=== PATIENT | male | born 1950 | race Caucasian/White ===

== ENCOUNTER → 2016-05-27 | Outpatient (CLI) | payer OTHER ==
[~2016-05-27] VITALS: Ht 177.8 cm; Wt 108.9 kg
[~2016-05-27] MED LIST: CATHETER FLUSH 10 ML SYR IV PRN; DOXY100C42 PO; ENXP40I.4 SC; EZET10TA5 PO; FENO134C PO; FLC1T PO; IBP800T PO; OMG1KC PO; OXYC1TAB87 PO
[2016-05-27 09:22] VITALS: BP 139/89
[2016-05-27 09:25] VITALS: BP 139/72
[2016-05-27 09:29] VITALS: BP 139/87
[2016-05-27 09:32] VITALS: BP 131/89
--- NOTE | 2016-05-28 08:55 | STRESS TEST ---
PROCEDURE PHYSICIAN: ELMER PERDUE DATE OF PROCEDURE: 05/27/2016 EXERCISE MYOVIEW STRESS TEST REPORT: REFERRING PHYSICIAN: Dr. Cruz. INDICATION FOR THE PROCEDURE: 1. Hypertension. 2. Hyperlipidemia. BASELINE HEART RATE: 56 BASELINE BLOOD PRESSURE: 110/73 BASELINE EKG: Sinus rhythm with no ischemic changes. IN SUMMARY: The patient was injected with 10.34 mCi of technetium 99 Myoview and the resting images were obtained. Then the patient started exercising with a baseline heart rate, blood pressure and EKG mentioned above. At minute 9, the patient was injected with 30 mCi of technetium 99 Myoview. He was able to exercise for total of 10 minutes on standard Artem protocol. With peak exercise level, EKG was showing minimal nondiagnostic changes. Blood pressure was 139/89. During recovery the patient had more EKG changes with upsloping ST depression in 2, 3, aVF, V4 and V5, which resolved later in recovery. The resting and stress images were reviewed and compared in the short axis, horizontal long axis, and vertical long axis views. Review of the images showed diaphragmatic attenuation with good radiotracer uptake. There is no significant ischemia or infarction on SPECT images. SSS is 4, SDS 4, TID value 0.93. On the gated images, the left ventricle appeared to be normal size with normal contractility. Calculated ejection fraction 61%. IN CONCLUSION: 1. Good exercise tolerance a total of 10 minutes on standard Artem protocol. Total of 12.8 METs, achieving 90% of maximum expected heart rate. 2. Appropriate heart rate and blood pressure response to exercise. Returned to baseline during recovery. 3. Nondiagnostic EKG changes with exercise. Returned to baseline during recovery. 4. No ischemia or infarction on SPECT images. 5. Normal left ventricular size with normal contractility. Calculated ejection fraction 61%. Job ID: [id number] Dictated Date: 05/28/2016 08:07:53 Manager Wealth Management Date: 05/28/2016 08:52:07 / monica
== END ==
LOC: CARD 07:25
PROVIDERS: ATTEND Physician Assistant
DX: I10 Essential (primary) hypertension (principal); E78.2 Mixed hyperlipidemia; G47.33 Obstructive sleep apnea (adult) (pediatric); E66.8 Other obesity
CPT/HCPCS: 78452; 93017

== ENCOUNTER → 2017-10-16 | Outpatient (CLI) | payer BC, OTHER ==
[~2017-10-16] MED LIST changes: +BARIUM SUSPENSION 2.1% (VANILLA SILQ) 450 ML PO ONE; +IOHEXOL 350 MG/ML 100 ML (OMNIPAQUE 350) VIAL IV ONE; +NS 250 ML (IVPB) BAG IV ONE
[2017-10-16 11:39] LABS: CREATININE SERUM 1.23 MG/DL (0.60-1.30)
--- NOTE | 2017-10-16 12:56 | Diagnostic Imaging Report ---
PROCEDURE: CT abdomen and pelvis with contrast. TECHNIQUE: Multiple contiguous axial images were obtained through the abdomen and pelvis after administration of intravenous contrast. INDICATION: Prostate cancer. COMPARISON: There is no previous study available at this time for comparison. FINDINGS: No focal hepatic or splenic lesion is identified. There is low density throughout the liver suggesting steatosis. No gallbladder or pancreatic abnormality is seen. Adrenal glands are unremarkable. There is no evidence of renal lesion. There is mild mural prominence in the upper stomach, which may be due to incomplete distention or possible peptic ulcer disease. There is no free fluid in the abdomen or pelvis. No pathologic adenopathy is identified. Partially opacified urinary bladder is unremarkable. 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 There is localized L2-3 degenerative disc disease with [id number]-[id number] lower lumbar degenerative facet arthropathy. IMPRESSION: Mild hepatic steatosis without CT evidence of acute abnormality in the abdomen or pelvis. There is no evidence of pathologic adenopathy or metastatic disease. Dictated by: Dictated on workstation # [id number]
--- NOTE | 2017-10-16 17:05 | Diagnostic Imaging Report ---
EXAMINATION: Whole body bone scan. INDICATION: History of prostate CA. There are no prior studies available for comparison. TECHNIQUE: This study was performed following administration of 27.3 mCi of 99m-technetium MDP. Anterior and posterior whole-body images were obtained. Spot films of the calvarium and the ribs were also obtained in lateral projection. FINDINGS: There is generalized distribution of the radiotracer throughout the osseous structures. There is no focal area of increased or decreased activity to suggest metastatic disease. There is increased activity about both acromioclavicular joints and both knee joints. This finding is most likely due to degenerative disease. There is a total knee prosthesis in place on the left as well. Both kidneys do show excretion of the radiotracer. IMPRESSION: 1. There is no evidence for an acute bony abnormality and there is no sign of metastatic disease. 2. There is degenerative disease involving the acromioclavicular and knee joints. There is also a total knee prosthesis in place on the left. Dictated by: Dictated on workstation # [id number]
== END ==
LOC: CARD 11:03
PROVIDERS: ATTEND Urology
DX: C61 Malignant neoplasm of prostate (principal); K76.0 Fatty (change of) liver, not elsewhere classified; Z96.652 Presence of left artificial knee joint; M17.0 Bilateral primary osteoarthritis of knee; M19.011 Primary osteoarthritis, right shoulder; M19.012 Primary osteoarthritis, left shoulder
CPT/HCPCS: 36415; 74177; 78306; 82565; 84520

== ENCOUNTER → 2018-03-19 | Outpatient (CLI) | payer BC ==
[~2018-03-19] MED LIST changes: -BARIUM SUSPENSION 2.1% (VANILLA SILQ) 450 ML PO ONE; -CATHETER FLUSH 10 ML SYR IV PRN; -IOHEXOL 350 MG/ML 100 ML (OMNIPAQUE 350) VIAL IV ONE; -NS 250 ML (IVPB) BAG IV ONE
--- NOTE | 2018-03-19 14:39 | Diagnostic Imaging Report ---
DEXA scan. Indication: Vitamin D deficiency. The bone mineral density of the hips and spine was measured. There are no prior studies available for comparison. The T score for the spine is 2.1. The T score for left hip is 1.1 and for the right hip 1.7. All these values are well within normal limits. Impression: The bone mineral density of the hips and spine is within normal limits. Dictated by: Dictated on workstation # [id number]
== END ==
LOC: RAD 09:56
PROVIDERS: ATTEND Family Medicine
DX: E55.9 Vitamin D deficiency, unspecified (principal)
CPT/HCPCS: 77080

== ENCOUNTER → 2018-03-23 | Outpatient (CLI) | payer BC ==
[~2018-03-23] MED LIST changes: +GADOBUTROL 7.5 MMOL/7.5 ML (GADAVIST) VIAL IV ONE; +IOHEXOL 240 MGI/ML 20 ML (OMNIPAQUE) VIAL IV ONE
--- NOTE | 2018-03-23 13:44 | Diagnostic Imaging Report ---
INDICATION: Left shoulder pain. FINDINGS: Patient was brought to the procedure room, placed on the table in the supine position. The skin of the left shoulder was prepped and draped in the usual sterile fashion. Small amount of 1% lidocaine was utilized for local anesthesia. 22-gauge needle was advanced into the left shoulder at the rotator interval. 15 mL solution of iodinated contrast, normal saline, and gadolinium was injected under fluoroscopic observation. Needle was withdrawn and hemostasis was obtained. The patient tolerated the procedure well and was sent to MRI in satisfactory condition. A total of 14 seconds of fluoroscopy was utilized. IMPRESSION: Successful left shoulder injection of gadolinium contrast solution, using fluoroscopy. Dictated by: Dictated on workstation # [id number]
--- NOTE | 2018-03-23 16:02 | Diagnostic Imaging Report ---
EXAMINATION: Magnetic resonance imaging of the left shoulder with intra-articular contrast. DATE: March 23, 2018. COMPARISON: Left shoulder arthrogram March 23, 2018. HISTORY: 67-year-old male, left shoulder pain. TECHNIQUE: Magnetic Resonance Imaging sequences were performed of the shoulder following the intra-articular administration of contrast. FINDINGS: ROTATOR CUFF, LIGAMENTS, TENDONS, AND MUSCLES: There is a focal round area of low signal adjacent to the posterior aspect of the infraspinatus tendon measuring 5 mm in size, likely reflecting calcific tendinitis/bursitis. There is no particularly prominent adjacent edema. There is no tear of the infraspinatus or teres minor tendons. There is prominent tendinopathy of supraspinatus. There is subscapularis tendinopathy. There are limitations of the axial sequence with associated limitations for evaluation of the subscapularis tendon. There is no convincing full-thickness tear of the subscapularis tendon. There is normal rotator cuff muscle bulk and signal. LONG HEAD OF BICEPS: There is tendinopathy of the long head of biceps. There is no tear of the long head of biceps tendon. The long head of biceps tendon is normally positioned within the bicipital groove. GLENOHUMERAL JOINT: The humeral head is well positioned relative to the glenoid. There is generalized blunting of the labrum. There is no identified paralabral cyst. There is near full-thickness glenohumeral cartilage loss. There is no identified intra-articular body or prominent synovitis. ACROMIOCLAVICULAR JOINT: The acromioclavicular joint is normally aligned. The coracoclavicular and coracoacromial ligaments are intact. There are advanced acromioclavicular degenerative changes with a bulbous lateral clavicle projecting approximately 3 mm below the joint margin. There is a small acromioclavicular joint effusion. BONE: There is no os acromiale. There is degenerative related marrow edema adjacent to the acromioclavicular joint. There is no acute fracture, bone contusion, or evidence of osteonecrosis. There is a subcortical cyst underlying the attachment site of infraspinatus within the superior humeral head measuring 9 x 6 mm in size. There is a small 3 mm subcortical cyst within the superior humeral head underlying the supraspinatus tendon insertion. BURSAE AND SOFT TISSUES: The bursae and soft tissue surrounding the shoulder are unremarkable. IMPRESSION: 1. Negative for full-thickness rotator cuff tendon tear. Severe supraspinatus and subscapularis tendinopathy. 2. Advanced acromioclavicular degenerative changes with bulbous lateral clavicle projecting 3 mm below the joint margin. No os acromiale. 3. Moderate to severe glenohumeral arthritis. No intra-articular body or prominent synovitis. 4. No acute fracture, bone contusion, or evidence of osteonecrosis. 5. Long head of biceps tendinopathy. Dictated by: Dictated on workstation # [id number]
== END ==
LOC: RAD 11:54
PROVIDERS: ATTEND Orthopaedic Surgery
DX: S43.432A Superior glenoid labrum lesion of left shoulder, initial encounter (principal); M75.22 Bicipital tendinitis, left shoulder; M19.012 Primary osteoarthritis, left shoulder
CPT/HCPCS: 23350; 73040; 73222

== ENCOUNTER 2018-04-29 14:00 | Outpatient (CLI) | payer BC ==
[~2018-04-29] VITALS: Ht 177.8 cm; Wt 109.3 kg
[~2018-04-29 14:00] MED LIST changes: -GADOBUTROL 7.5 MMOL/7.5 ML (GADAVIST) VIAL IV ONE; -IOHEXOL 240 MGI/ML 20 ML (OMNIPAQUE) VIAL IV ONE
[2018-04-29] MEDS ORDERED: LOSA25TA6 PO (14:10)
[2018-04-29] MEDS ORDERED: FOLI1TAB24 PO (14:10)
[2018-04-29] MEDS ORDERED: METO-370 PO (14:10)
[2018-04-29] MEDS ORDERED: EZET10TA27 PO (14:10)
[2018-04-29] MEDS ORDERED: FENO134C PO (14:10)
== END 2018-04-29 14:13 | disposition home or self-care (01) ==
LOC: PREOP 14:00
PROVIDERS: ATTEND Internal Medicine
DX: Z01.818 Encounter for other preprocedural examination (principal)

== ENCOUNTER 2018-05-01 07:51 | Day surgery (SDC) | payer BC ==
--- NOTE | 2018-04-16 18:06 | HISTORY AND PHYSICAL ---
DATE OF SERVICE: COLONOSCOPY HISTORY AND PHYSICAL HISTORY OF PRESENT ILLNESS: The patient is a 67-year-old white male referred by Dr. Cruz for screening colonoscopy. He seemed to be of higher than average risk as there is family history for colon cancer. The main index case was his father who was diagnosed with colon cancer in his late 50s or early 60s. He has also had one grandmother who was diagnosed later in life with colon cancer. His last colonoscopy was a little over 4 years ago, at which time, he had no evidence for neoplasia. INTERVAL HISTORY: Pertinent for prostate cancer. He underwent robotic prostatectomy earlier this year, I believe in November of this year. The surgery went well. He has had no reported complications and he is going to be going back to where he had this done robotically for repeat postoperative PSA next week. He reports that he feels well. PAST MEDICAL HISTORY: Significant for hyperlipidemia and hypertension with no known history of vascular disease. SOCIAL HISTORY: He is employed, , with children. No past smoking history and reported occasional social alcohol intake. PAST SURGICAL HISTORY: Other than his robotic prostatectomy is also significant for left total knee replacement in 03/2013 that was uneventful. MEDICATIONS ON ADMISSION: Include metoprolol succinate 50 mg daily, losartan 25 mg daily, fenofibrate 134 mg daily, folic acid 1 mg daily and Zetia 10 mg daily. PHYSICAL EXAMINATION: GENERAL: Reveals a well-appearing white male in no acute distress. VITAL SIGNS: Weight is 241 pounds, blood pressure 114/82. HEENT: Unremarkable as Mallampati class 2 oropharyngeal configuration. Posterior pharynx reveals no erythema or exudate. NECK: Revealed no JVD, adenopathy or bruits. CHEST: Clear to auscultation. CARDIOVASCULAR: Reveals a regular rate and rhythm without murmur, S3 or S4. ABDOMEN: Soft, supple without mass, organomegaly or tenderness. Well-healed trocar sites are noted that are nontender. No evidence for abdominal aortic aneurysm is noted. Bowel sounds are positive. No bruits are noted. EXTREMITIES: Reveal no cyanosis, clubbing or edema. ASSESSMENT AND PLAN: 1. The patient was set up for screening colonoscopy deemed to be higher than average risk due to father diagnosed with colon cancer in his late 50s or early 60s. One grandmother diagnosed with colon cancer as well. Prep instructions and Suprep kit were given and questions were answered. Electronic medical record was reviewed. Forty-five minutes care time was spent by myself and another 15 minutes of staff time setting up the procedure and going over prep instructions. I thank you for the referral of this pleasant gentleman. Job ID: [id number] DocumentID: [id number] Dictated Date: 04/16/2018 17:31:22 Credentialer Date: 04/16/2018 18:06:24 Dictated By: MIRIAN FRANKEL MD
[~2018-05-01] VITALS: Ht 177.8 cm; Wt 109.3 kg
[~2018-05-01 07:51] MED LIST changes: +EZET10TA27 PO; +FOLI1TAB24 PO; +LOSA25TA6 PO; +METO-370 PO
[2018-05-01 08:00] VITALS: BP 110/84
[2018-05-01] MEDS ORDERED: D5 LR IV SOLUTION 1,000 ML IV STA (08:03)
[2018-05-01] MEDS ORDERED: D5 LR IV SOLUTION 1,000 ML IV ONE (08:06)
[2018-05-01] MEDS ORDERED: fentaNYL INJECTION 100 MCG/2 ML AMP IVP ONE (08:15)
[2018-05-01] MEDS ORDERED: MIDAZOLAM 2 MG/2 ML (VERSED) VIAL IVP ONE (08:15)
[2018-05-01] MEDS ORDERED: LIDOCAINE JELLY 2% 6 ML SYRINGE MM PRN (08:15)
[2018-05-01] MEDS ORDERED: fentaNYL INJECTION 100 MCG/2 ML AMP ONE (09:00)
[2018-05-01] MEDS ORDERED: MIDAZOLAM 2 MG/2 ML (VERSED) VIAL ONE ×2 (09:00)
[2018-05-01] MEDS ORDERED: LIDOCAINE JELLY 2% 6 ML SYRINGE ONE (09:01)
--- NOTE | 2018-05-01 09:13 | Pre-Op Note & Conscious Sedat ---
Pre-Operative Progress Note H&P Reviewed The H&P was reviewed, patient examined and no changes noted. Date H&P Reviewed: May 01, 2018 Time H&P Reviewed: 09:05 Conscious Sedation Pre-Proced ASA Score 2 For ASA 3 and 4: Consider anesthesia and medical clearance. Also, for patients with a history of failed moderate sedation consider anesthesia. Airway Lungs Heart ASA score ASA 1: a normal healthy patient ASA 2: a patient with a mild systemic disease (mid diabetes, controlled hypertension, obesity ASA 3: a patient with a severe systemic disease that limits activity (angina , COPD, prior Myocardial infarction) ASA 4: a patient with an incapacitating disease that is a constant threat to life (CHF, renal failure) ASA 5: a moribund patient not expected to survive 24 hrs. (ruptured aneurysm) ASA 6: a declared brain patient whose organs are being harvested. For emergent operations, add the letter E after the classification Mallampati Classification Grade 2 Sedation Plan Analgesia, Amnesia, Plan communicated to team members, Discussed options with patient/fam, Discussed risks with patient/fam The patient is an appropriate candidate to undergo the planned procedure, sedation, and anesthesia. The patient immediately re-assessed prior to indication. MIRIAN FRANKEL MD May 01, 2018 09:13
[2018-05-01 09:45] VITALS: BP 123/81
[2018-05-01 10:15] VITALS: BP 119/78
[2018-05-01 10:45] VITALS: BP 119/78
--- NOTE | 2018-05-01 23:10 | OPERATIVE REPORT ---
DATE OF SERVICE: COLONOSCOPY SUMMARY INDICATION FOR THE PROCEDURE: Screening colonoscopy. The patient was placed in the left lateral decubitus position and digital rectal evaluation was performed. Anal sphincter tone was normal and the perianal reflexes intact. The prostate is elastic mildly enlarged, anodular and nontender to digital inspection. No abnormalities on additional inspection of the anal canal or distal rectal vault. The colonoscope was then inserted into the rectum under direct visualization advanced to the cecum. The cecum was identified by the extent of the ileocecal valve and cecal strap. Photographic documentation was obtained. A careful inspection was made as the colonoscope was withdrawn. The patient tolerated the procedure well. FINDINGS: There was no evidence for internal or external hemorrhoids. Present in the distal rectum was a diminutive hyperplastic appearing polyp was photographed and biopsied and ablated with no subsequent blood loss via hot forceps. The remainder of the rectum, sigmoid colon, descending colon, splenic flexure, transverse colon, hepatic flexure, ascending colon and cecum were unremarkable. ASSESSMENT: One diminutive polyp was removed via hot forceps from the distal rectum with hyperplastic appearing features. Digital rectal evaluation was compatible with mild BPH without evidence for prostate nodularity or tenderness. The patient does have family history of second degree relative with colon cancer, his grandmother and past colon polyps, we will advocate repeat surveillance colonoscopy in 5 years. I thank you for the referral of this pleasant gentleman. Job ID: [id number] DocumentID: [id number] Dictated Date: 05/01/2018 12:17:01 Application Internship Date: 05/01/2018 23:10:05 Dictated By: MIRIAN FRANKEL MD
== END 2018-05-01 10:45 | disposition home or self-care (01) ==
LOC: ENDO 07:51
PROVIDERS: ATTEND Internal Medicine
DX: Z12.11 Encounter for screening for malignant neoplasm of colon (principal); K62.1 Rectal polyp; I10 Essential (primary) hypertension; E78.5 Hyperlipidemia, unspecified; C61 Malignant neoplasm of prostate; Z80.0 Family history of malignant neoplasm of digestive organs; Z83.71 Family history of colonic polyps; Z79.899 Other long term (current) drug therapy
CPT/HCPCS: 88305

== ENCOUNTER → 2019-02-22 | Outpatient (CLI) | payer MEDICARE, OTHER ==
[~2019-02-22] MED LIST changes: -EZET10TA27 PO; +EZET10TA49 PO; +LOSA25TA41 PO; -LOSA25TA6 PO
== END ==
LOC: CARD 10:52
PROVIDERS: ATTEND Physician Assistant
DX: I08.1 Rheumatic disorders of both mitral and tricuspid valves (principal); I10 Essential (primary) hypertension; E78.5 Hyperlipidemia, unspecified; G47.33 Obstructive sleep apnea (adult) (pediatric)
CPT/HCPCS: 93306

== ENCOUNTER → 2020-02-08 | Outpatient (RCR) | payer MEDICARE, OTHER ==
[2019-12-01 13:24] LABS: BUN/CREATININE RATIO 18; CREATININE SERUM 1.16 MG/DL (0.60-1.30); GFR ESTIMATED > 60
[~2020-02-08] MED LIST changes: -METO-370 PO; +METO50TA7 PO
== END | disposition home or self-care (01) ==
LOC: ONC 11-10 08:04
PROVIDERS: ATTEND Radiology Radiation Oncology
DX: Z51.0 Encounter for antineoplastic radiation therapy (principal); C61 Malignant neoplasm of prostate; I11.9 Hypertensive heart disease without heart failure; E78.5 Hyperlipidemia, unspecified; G47.33 Obstructive sleep apnea (adult) (pediatric); I65.29 Occlusion and stenosis of unspecified carotid artery; Z96.659 Presence of unspecified artificial knee joint; Z82.49 Family history of ischemic heart disease and other diseases of the circulatory system
CPT/HCPCS: 77300; 77301; 77334; 77336; 77338; 77385; 82565; 84520; 99204

== ENCOUNTER 2020-04-20 13:50 | Outpatient (RCR) | payer MEDICARE, OTHER | END 2020-05-09 | disposition home or self-care (01) | LOC: ONC 13:50 | PROVIDERS: ATTEND Radiology Radiation Oncology | DX: Z51.0 Encounter for antineoplastic radiation therapy (principal); C61 Malignant neoplasm of prostate; I11.9 Hypertensive heart disease without heart failure; E78.5 Hyperlipidemia, unspecified; G47.33 Obstructive sleep apnea (adult) (pediatric); I65.29 Occlusion and stenosis of unspecified carotid artery; Z96.659 Presence of unspecified artificial knee joint; Z82.49 Family history of ischemic heart disease and other diseases of the circulatory system | CPT/HCPCS: 77336; 77385 ×2; G0463; 99213 ==

== ENCOUNTER 2020-05-29 05:30 | Outpatient (RCR) | payer MEDICARE, OTHER ==
[~2020-05-29] VITALS: Ht 177.8 cm; Wt 111.4 kg
== END 2020-05-29 09:49 | disposition home or self-care (01) ==
LOC: PREOP 05:30
PROVIDERS: ATTEND Surgery
DX: Z01.812 Encounter for preprocedural laboratory examination (principal); R22.1 Localized swelling, mass and lump, neck; Z20.822 Contact with and (suspected) exposure to COVID-19
CPT/HCPCS: 87635

== ENCOUNTER 2020-05-31 07:12 | Day surgery (SDC) | payer MEDICARE, OTHER ==
[~2020-05-31] VITALS: Ht 177 cm; Wt 111.0 kg
[2020-05-31] VITALS (11 sets, daily range): BP systolic 102–121; BP diastolic 61–90
[~2020-05-31 07:12] MED LIST changes: -FOLI1TAB24 PO; +FOLI1TAB33 PO
[2020-05-31] MEDS ORDERED: LIDOCAINE/EPI 1%-1:100,000 (XYLOCAINE) 50 ML ONE (07:16)
[2020-05-31] MEDS ORDERED: LACTATED RINGERS 1,000 ML IV PRN (07:30)
[2020-05-31] MEDS ORDERED: ceFAZolin 2 GM IV Premixed 50 ML IV ONE (07:30)
[2020-05-31] MEDS ORDERED: proPOfol 200 MG/20 ML (DIPRIVAN) VIAL IV ONE (07:37)
[2020-05-31] MEDS ORDERED: SEVOFLURANE (ULTANE) 15 ML INHAL SOLN ONE ×3 (07:37→08:48)
[2020-05-31] MEDS ORDERED: LIDOCAINE PF 2% 5 ML (XYLOCAINE) VIAL ONE (07:37)
[2020-05-31] MEDS ORDERED: fentaNYL INJECTION 100 MCG/2 ML AMP ONE (07:38)
[2020-05-31] MEDS ORDERED: MIDAZOLAM 2 MG/2 ML (VERSED) VIAL ONE (07:38)
--- NOTE | 2020-05-31 08:06 | Progress Note-Pre Operative ---
Pre-Operative Progress Note H&P Reviewed The H&P was reviewed, patient examined and no changes noted. Time Seen by Provider: 07:59 Date H&P Reviewed: May 31, 2020 Time H&P Reviewed: 07:59 Pre-Operative Diagnosis: Left posterior neck mass, site marked HANY PENN DO May 31, 2020 08:06
[2020-05-31] MEDS ORDERED: ONDANSETRON 4 MG/2 ML (SDV) Z0FRAN ONE (08:48)
--- NOTE | 2020-05-31 08:51 | Progress Note-Post Operative ---
Post-Operative Progess Note Surgeon (s)/Saw Maker (s) Surgeon HANY PENN DO Saw Maker: DAVIS Lewis Pre-Operative Diagnosis Left posterior neck mass, site marked Post-Operative Diagnosis same pending path Procedure & Operative Findings Date of Procedure 05/31/20 Procedure Performed/Findings Exc of Left post neck mass, 5.2 cm incision, down to and including some fascia Anesthesia Type LMA Estimated Blood Loss Estimated blood loss (mL): scant Specimens/Packing Specimens Removed left posterior neck mass HANY PENN DO May 31, 2020 08:51
[2020-05-31] MEDS ORDERED: ACHD5005 PO (08:52)
--- NOTE | 2020-05-31 08:53 | Discharge Inst-Surgical ---
Discharge Inst-Surgical Depart Medication/Instructions New, Converted or Re-Newed RX: RX Given to Pt/Family Patient Instructions Follow up Appt: Make appointment for 1 week. [phone] Instructions: No strenuous activity. May shower in 24 hours, no tub bath or soaking. Use incentive spirometer at home as directed. No Smoking Skin/Wound Care: May remove bandages in am. You need to leave the Dermabond on incision it will fall off on it's own. Symptoms to Report: Appetite Changes, Extremity Discoloration, Numbness/Tingling, Swelling Increased, Bleeding Excessive, Eyesight Changes, Pain Increased, Urine Color Nhung nge, Constipation(Persistent), Fever over 101 degree F, Pain/Pressure in chest, Urinating Difficulty, Cough Up/Vomit Blood, Heart Beat Irreg/Pounding, Pain/Pressure in jaw, Cramps in feet or legs, Lightheadedness, Pain/Pressure in shoulder, Diarrhea(Persistent), Memory Changes Suddenly, Questions/Concerns, Weight gain consecutive days, Dizziness/Fainting, Nausea/Vomiting, Shortness of Breath, Weight gain over 2 pounds If questions or concerns contact your physician Or seek help at emergency department. Activity Activity as Tolerated: Yes Activity Instructions: Avoid Stress to Incision Driving Instructions: No Driving/Refer to (while on pain meds) Diet Discharge Diet: No Restrictions Diet After 24 Hours: Clear Liquid if Nauseous If Any Problems/Questions/Issu: Contact Your Physician, Go to Emergency Room Skin/Wound Care Infection Signs and Symptoms: Increased Redness, Foul Odor of Wound, Increased Drainage, Skin Itchy or Has a Rash, Increased Swelling, Temperature Above 101 F Bathing Instructions: Shower Stitches/Prem/Dermabond Dis: Care of Stitches Ice Pack: Ice On and Off Site HANY PENN DO May 31, 2020 08:53
--- NOTE | 2020-05-31 09:43 | Anesthesia-General Post-Op ---
General Patient Condition Mental Status/LOC: Same as Preop Cardiovascular: Satisfactory Nausea/Vomiting: Absent Respiratory: Satisfactory Pain: Controlled Complications: Absent Post Op Complications Complications None Follow Up Care/Instructions Patient Instructions None needed. Anesthesia/Patient Condition Patient Condition Patient is doing well, no complaints, stable vital signs, no apparent adverse anesthesia problems. No complications reported per nursing. AMADEO STEIN CRNA May 31, 2020 09:43
[2020-05-31] MEDS ORDERED: ONDANSETRON 4 MG/2 ML (SDV) Z0FRAN IVP PRN (09:45)
[2020-05-31] MEDS ORDERED: morphine INJ 10 MG/ML 1ML (SYR OR VIAL) IVP ONE (09:45)
[2020-05-31] MEDS ORDERED: fentaNYL INJECTION 100 MCG/2 ML AMP IVP ONE (09:45)
--- NOTE | 2020-05-31 12:31 | OPERATIVE REPORT ---
DATE OF SERVICE: 05/31/2020 PREOPERATIVE DIAGNOSIS: Left posterior neck mass. POSTOPERATIVE DIAGNOSIS: Left posterior neck mass, pending pathology. PROCEDURE: Excision of left posterior neck mass, 5.2 cm incision down to and including a portion of the fascia. SURGEON: Kp Banuelos DO JOB PRESS FEEDER: , MS3. SPECIMEN: Left posterior neck mass. BLOOD LOSS: Scant. FLUIDS: Per anesthesia. POSTOPERATIVE CONDITION: Stable. INDICATION FOR PROCEDURE: The patient is a 69-year-old male who has a mass in the left posterior neck that has been getting larger, site was marked and agreed upon during timeout. FINDINGS: The patient had posterior neck mass, looked like it was most likely a sebaceous cyst, may have had a little bit of purulence, it was down to and right on top of the fascia. PROCEDURE NOTE: After informed consent was obtained, the patient was brought to the operating room, placed on the operating table in supine position. He was sterilely prepped and draped in normal fashion. Local lidocaine was used to infiltrate the skin above as well as around this mass, then made an incision with #15 blade, carried down to skin into subcutaneous tissue measured 5.2 cm, then deepened down to subcutaneous tissue with trying to cut around this mass with a sharp dissection with a #15 blade as well as then using Bovie electrocautery, did get into the mass a little bit, but able to start dissecting around it, extending the incision a little bit posteriorly, laterally and medially to be able to get around this, able to then get around at the base, grasped with Allis and then start dissecting it off of the posterior portion of this cavity. This went right on top of the fascia and some of the fascia had to be removed to remove this mass completely. Continued dissecting with Bovie electrocautery. Finally, able to get this completely removed, passed this off table and sent to pathology. Copiously irrigated with normal saline. Hemostasis obtained using Bovie electrocautery. At this time, then elected to close the incision with 3-0 Prolene three vertical mattress sutures and then four simple interrupted sutures. Area was cleaned and dried, dressing placed. The patient tolerated the procedure. Sponge, instrument and needle count correct at the end of the case. Job ID: [id number] DocumentID: [id number] Dictated Date: 05/31/2020 09:21:33 Wire Photo Operator News Date: 05/31/2020 12:31:09 Dictated By: KP BANUELOS DO
== END 2020-05-31 11:30 ==
LOC: SDC 07:12
PROVIDERS: ATTEND Surgery
DX: D48.1 Neoplasm of uncertain behavior of connective and other soft tissue (principal); I10 Essential (primary) hypertension; G47.33 Obstructive sleep apnea (adult) (pediatric); M19.90 Unspecified osteoarthritis, unspecified site; E78.5 Hyperlipidemia, unspecified; E66.9 Obesity, unspecified; Z68.35 Body mass index [BMI] 35.0-35.9, adult; Z79.899 Other long term (current) drug therapy
CPT/HCPCS: 87081; 88304

== ENCOUNTER 2020-10-12 10:56 | Outpatient (RCR) | payer MEDICARE, OTHER ==
[~2020-10-12 10:56] MED LIST changes: +ACHD5005 PO
== END 2021-01-10 | disposition home or self-care (01) ==
LOC: ONC 10:56
PROVIDERS: ATTEND Radiology Radiation Oncology
DX: C61 Malignant neoplasm of prostate (principal)
CPT/HCPCS: 99213

== ENCOUNTER 2021-01-04 06:29 | Outpatient (CLI) | payer MEDICARE, OTHER ==
[~2021-01-04] VITALS: Ht 177.8 cm; Wt 109.1 kg
== END 2021-01-08 08:29 ==
LOC: PREOP 06:29
PROVIDERS: ATTEND Internal Medicine
DX: Z01.818 Encounter for other preprocedural examination (principal)

== ENCOUNTER 2021-01-12 07:25 | Day surgery (SDC) | payer MEDICARE, OTHER ==
--- NOTE | 2021-01-04 06:08 | HISTORY AND PHYSICAL ---
DATE OF SERVICE: COLONOSCOPY HISTORY AND PHYSICAL HISTORY OF PRESENT ILLNESS: The patient is a 70-year-old white male referred by Dr. Cruz for diagnostic colonoscopy due to intermittent bright red blood per rectum. The patient reports for the past 2 months, he has been having unpredictable bright red blood per rectum, sometimes a large volume without pain or change in bowel habit. He denies constipation or diarrhea. This has been going on for the past 2 months. He does report for primary prevention he gets around taking an aspirin once or twice a week, but not on a daily basis. He has had no bowel habit change and denies any associated abdominal pain. He last underwent colonoscopy 3 years ago, at which time he had one diminutive hyperplastic polyp removed from the distal rectum. He did not have evidence for diverticular disease at that time. He does have family history for colon cancer in a grandmother. PAST MEDICAL HISTORY: Since I last saw him, he was diagnosed with prostate cancer and underwent prostatectomy on the 12/17/2017. He had apparent PSA failure and then underwent radiation therapy, which she finished in 02/2020. He is fully COVID vaccinated. MEDICATIONS ON ADMISSION: Include Zetia 10 mg daily, folic acid 1 mg daily, losartan 25 mg daily, metoprolol 50 mg daily, taken for hypertension. He has no known cardiovascular disease and was also taking either regular baby aspirin once or twice a week. SOCIAL HISTORY: The patient is , retired, physically active. FAMILY HISTORY: As noted in the HPI. His father was diagnosed with colon cancer as well, likely in his late 60s. PAST SURGICAL HISTORY: Significant for prostatectomy as noted above. He has had total knee replacement in 2013 on the left. Previous to that had a left ACL repair 20 years ago. REVIEW OF SYSTEMS: CONSTITUTIONAL: The patient denies night sweats, chills, fever, change in weight. GASTROINTESTINAL: As noted in the HPI. PULMONARY: The patient denies cough, wheezing or shortness of breath. CARDIOVASCULAR: The patient denies chest pain, dyspnea on exertion, orthopnea, PND or pedal edema. PHYSICAL EXAMINATION: GENERAL: Reveals a white male, who did not appear to be in acute distress. No evidence for pallor. HEENT: Unremarkable. CHEST: Clear to auscultation. CARDIOVASCULAR: Revealed a regular rate and rhythm without murmur, S3 or S4. ABDOMEN: Soft, supple without mass, organomegaly or tenderness. No bruits noted. Bowel sounds positive. EXTREMITIES: Reveal no cyanosis, clubbing or edema. ASSESSMENT AND PLAN: For further investigation of bright red blood per rectum with a strong family history for colon cancer. The patient is being set up for diagnostic colonoscopy. The patient is also going to be at risk for radiation proctitis, which may very well be the underlying cause of intermittent bleeding. Advised that he hold aspirin, especially in light of the fact that might affect recent studies indicating minimal benefit for primary prevention. I thank you for the referral of this pleasant gentleman. Job ID: [id number] DocumentID: [id number] Dictated Date: 12/28/2020 17:03:05 Novelty Printing Machine Operator Date: 12/28/2020 17:38:19 Dictated By: MIRIAN FRANKEL MD
[~2021-01-12] VITALS: Ht 177.8 cm; Wt 109.1 kg
[2021-01-12] MEDS ORDERED: LACTATED RINGERS 1,000 ML IV STA (07:38)
[2021-01-12] MEDS ORDERED: LACTATED RINGERS 1,000 ML IV ONE (07:43)
[2021-01-12] MEDS ORDERED: LIDOCAINE JELLY 2% 6 ML SYRINGE MM PRN (07:45)
[2021-01-12 07:48] VITALS: BP 123/93
--- NOTE | 2021-01-12 08:05 | Pre-Op Note & Conscious Sedat ---
Pre-Operative Progress Note H&P Reviewed The H&P was reviewed, patient examined and no changes noted. Date H&P Reviewed: Jan 12, 2021 Time H&P Reviewed: 08:05 Conscious Sedation Pre-Proced ASA Score 2 For ASA 3 and 4: Consider anesthesia and medical clearance. Also, for patients with a history of failed moderate sedation consider anesthesia. Airway Lungs Heart ASA score ASA 1: a normal healthy patient ASA 2: a patient with a mild systemic disease (mid diabetes, controlled hypertension, obesity ASA 3: a patient with a severe systemic disease that limits activity (angina, COPD, prior Myocardial infarction) ASA 4: a patient with an incapacitating disease that is a constant threat to life (CHF, renal failure) ASA 5: a moribund patient not expected to survive 24 hrs. (ruptured aneurysm) ASA 6: a declared brain- patient whose organs are being harvested. For emergent operations, add the letter E after the classification Mallampati Classification Grade 3 Sedation Plan Analgesia, Amnesia, Plan communicated to team members, Discussed options with patient/fam, Discussed risks with patient/fam The patient is an appropriate candidate to undergo the planned procedure, sedation, and anesthesia. The patient immediately re-assessed prior to indication. MIRIAN FRANKEL MD Jan 12, 2021 08:05
[2021-01-12] MEDS ORDERED: MIDAZOLAM 2 MG/2 ML (VERSED) VIAL ONE (08:45)
[2021-01-12] MEDS ORDERED: PROPOFOL INJECTION 50 ML IV ONE (08:45)
[2021-01-12 09:05] VITALS: BP 97/56
[2021-01-12 09:10] VITALS: BP 94/52
[2021-01-12 09:15] VITALS: BP 123/93
[2021-01-12 09:40] VITALS: BP 110/74
[2021-01-12 10:05] VITALS: BP 110/74
--- NOTE | 2021-01-12 10:14 | Anesthesia-General Post-Op ---
MAC Patient Condition Mental Status/LOC: Same as Preop Cardiovascular: Satisfactory Nausea/Vomiting: Absent Respiratory: Satisfactory Pain: Controlled Complications: Absent Post Op Complications Complications None Follow Up Care/Instructions Patient Instructions None needed. Anesthesiology Discharge Order Discharge Order Patient is doing well, no complaints, stable vital signs, no apparent adverse anesthesia problems. No complications reported per nursing. BUDDY MCDONOUGH CRNA Jan 12, 2021 10:14
--- NOTE | 2021-01-12 14:11 | OPERATIVE REPORT ---
DATE OF SERVICE: COLONOSCOPY SUMMARY INDICATION FOR THE PROCEDURE: Rectal bleeding, family history of colon cancer. PRIMARY CARE PROVIDER: Danielle Cruz MD. DESCRIPTION OF PROCEDURE: The patient was placed in the left lateral decubitus position. Prior to undergoing colonoscopy, a digital rectal evaluation was performed. Anal sphincter tone was normal and the perianal reflexes intact. No palpable evidence for any remaining prostatic tissue was present and no nodularity was noted. No other abnormalities were noted on digital inspection of anal canal or distal rectal vault. The colonoscope was then inserted into the rectum and under direct visualization advanced to the cecum. The cecum was identified by identification of the ileocecal valve, cecal strap and appendiceal orifice. Photographic documentation was obtained. Careful inspection was made as colonoscope was withdrawn. The quality of prep was good. FINDINGS: There was no evidence for internal or external hemorrhoids. There are some telangiectatic blood vessels noted with some mild erythema in the distal rectum. Digital finding is compatible with radiation proctitis and most likely source of this patient's small volume bright red blood per rectum. No other rectal abnormalities were noted. The sigmoid colon, the descending colon, splenic flexure, transverse colon, hepatic flexure, ascending colon and cecum were unremarkable. No evidence for neoplasia or any other potential bleeding sites identified. ASSESSMENT: Findings compatible with radiation proctitis were noted in the distal rectum, the most likely source of this patient's small volume bright red blood per rectum. This is otherwise normal colonoscopy to the cecum. Considering family history, I would advocate consideration for repeat surveillance colonoscopy in five years. Job ID: [id number] DocumentID: [id number] Dictated Date: 01/12/2021 09:15:24 Medical Device Sales Representative Date: 01/12/2021 14:10:40 Dictated By: MIRIAN FRANKEL MD
== END 2021-01-12 10:05 ==
LOC: ENDO 07:25
PROVIDERS: ATTEND Internal Medicine
DX: K62.5 Hemorrhage of anus and rectum (principal); I10 Essential (primary) hypertension; Z79.899 Other long term (current) drug therapy; Z79.82 Long term (current) use of aspirin; Z85.46 Personal history of malignant neoplasm of prostate; Z87.19 Personal history of other diseases of the digestive system

== ENCOUNTER 2021-10-11 09:27 | Outpatient (RCR) | payer MEDICARE, OTHER ==
[~2021-10-11 09:27] MED LIST changes: +FENO134C21 PO
== END 2021-11-08 | disposition home or self-care (01) ==
LOC: ONC 09:27
PROVIDERS: ATTEND Radiology Radiation Oncology
DX: C61 Malignant neoplasm of prostate (principal); E78.5 Hyperlipidemia, unspecified; E66.9 Obesity, unspecified; I10 Essential (primary) hypertension
CPT/HCPCS: 99213

== ENCOUNTER 2022-10-17 08:47 | Outpatient (RCR) | payer MEDICARE, OTHER | END 2022-11-08 | disposition home or self-care (01) | LOC: ONC 08:47 | PROVIDERS: ATTEND Radiology Radiation Oncology | DX: D48.1 Neoplasm of uncertain behavior of connective and other soft tissue (principal); I10 Essential (primary) hypertension; E78.2 Mixed hyperlipidemia; I65.29 Occlusion and stenosis of unspecified carotid artery | CPT/HCPCS: 99213 ==

== ENCOUNTER → 2023-03-25 | Outpatient (CLI) | payer MEDICARE, OTHER | LOC: CARD 12:10 | PROVIDERS: ATTEND Internal Medicine Cardiovascular Disease | DX: I51.7 Cardiomegaly (principal) | CPT/HCPCS: 93306 ==

== ENCOUNTER → 2023-04-07 | Outpatient (CLI) | payer MEDICARE, OTHER ==
[~2023-04-07] MED LIST changes: +CATHETER FLUSH 10 ML SYR IVP PRN
[2023-04-07 09:20] VITALS: BP 111/77
--- NOTE | 2023-04-07 10:54 | Cardiology Stress Test Report ---
Stress Test Report Date of Procedure/Referring: Date of Procedure: Apr 07, 2023 PCP Chuck Cruz MD Admitting Physician Admitting Physician: Attending Physician: Zenobia Rivera MD Baseline Heart Rate: 57 Baseline Blood Pressure: Blood Pressure Systolic: 111 Blood Pressure Diastolic: 77 Vital Signs Date Time Temp Pulse Resp B/P (MAP) Pulse Ox O2 Delivery O2 Flow Rate FiO2 04/07/23 09:20 57 111/77 (88) 98 Baseline Vital Signs Vital Signs Date Time Temp Pulse Resp B/P (MAP) Pulse Ox O2 Delivery O2 Flow Rate FiO2 04/07/23 09:20 57 111/77 (88) 98 Baseline EKG: Baseline EKG: NSR Summary: After explaining the procedure and details to the patient, he signed the consent and was brought to the stress nuclear laboratory. Patient exercised on standard Artem protocol, EKG, heart rate and blood pressure were monitored continuously, resting and stress doses of radio tracer were injected, imaging was acquired and reviewed in the short axis, horizontal long axis and vertical long axis views Patient was able to exercise for a total of 9 minutes on Artem protocol, METs 10.3 Maximum heart rate 133 Maximum blood pressure 197/92 Stress EKG, Minimal nondiagnostic changes Recovery EKG, Return to baseline TID: 1.02 SSS: 1 SDS: 1 EF: 58 Conclusion: Good exercise tolerance for 9 minutes on standard Artem protocol, 10.3 METS achieving 88% of maximal expected heart rate Appropriate heart rate response to exercise with hypertensive response to exercise with peak blood pressure 197/92 return to baseline during recovery Minimal nondiagnostic EKG changes with exercise return to baseline during recovery No significant ischemia or infarction noted on SPECT images Normal left ventricular size, ejection fraction 58% Copy Copies To 1: CHUCK CRUZ MD, BASHAR J MD Apr 07, 2023 10:54
== END ==
LOC: CARD 08:03
PROVIDERS: ATTEND Internal Medicine Cardiovascular Disease
DX: R07.9 Chest pain, unspecified (principal)
CPT/HCPCS: 78452; 93017; A9502